=== PATIENT | female | born 1980 | race Caucasian/White ===

== ENCOUNTER 2023-02-15 09:13 | Outpatient (CLI) | payer BC, SELFPAY ==
[2023-02-19 05:18] LABS: Immunoglobulin A 240 mg/dL (47-310); TTG IGA AB <1.0 U/mL (<15.0)
== END 2023-02-15 09:14 | disposition home or self-care (01) ==
LOC: ANHLAB 09:15
PROVIDERS: Visit Provider Nurse Practitioner
DX: K92.1 Melena (principal); K58.2 Mixed irritable bowel syndrome
CPT/HCPCS: 36415; 82784; 86364

== ENCOUNTER 2023-04-20 01:49 | Day surgery (SDC) | payer BC, SELFPAY ==
[2023-04-06 15:51] VITALS: BMI 28.3
--- NOTE | 2023-04-16 11:48 | SUR.PREOP ---
Patient called regarding upcoming procedure. Message left on patient's voicemail regarding preop instructions, appointment times, and procedure prep.
[2023-04-20 08:12] VITALS: BP 117/80; PULSE 64; RESP 16; TEMP 36.1; O2SAT 100; BMI 29.4
[2023-04-20] MEDS: LACTATED RINGERS 1,000 ML 150 ML IV CONT (08:22)
--- NOTE | 2023-04-20 08:51 | PM.HPGS ---
History of Present Illness History of Present Illness Consent: Risks, benefits, and alternatives have been discussed and questions answered. Patient agrees to proceed with procedure. Chief complaint: Mixed irritable bowel syndrome,melena Narrative: Jaylyn Byrd is a 42 year old female with ibs-c, never had colonoscopy Review of Systems Constitutional: Constitutional: Denies headache(s) and Denies weakness Eyes: Eyes: Denies blurry vision ENT: Reports Normal hearing present, Denies headache(s) and Denies neck pain Cardiovascular: Cardiovascular: Denies chest pain and Denies dyspnea Respiratory: Respiratory: Denies dyspnea Gastrointestinal: Gastrointestinal: Reports no additional gastrointestinal complaints Genitourinary: Genitourinary: Denies dysuria Musculoskeletal: Musculoskeletal: Denies neck pain Integumentary/Breasts: Skin/Breast: Denies dry skin Neurologic: Reports Normal hearing present, Denies headache(s) and Denies weakness Psychiatric: Psychiatric: Denies anxiety Endocrine: Endocrine: Denies change in body appearance Hematologic/Lymphatic: Hematologic/Lymphatic: Denies easy bleeding Allergic/Immunologic: Allergic/Immunologic: Denies urticaria PMFSH Past Medical History Medical History (Updated 02/15/23 @ 09:10 by Mariah Eden APRN) Hematochezia Hemorrhoids Irritable bowel syndrome with alternating bowel habits Surgical History Surgical History (Updated 02/15/23 @ 09:19 by Mariah Eden APRN) Hx of right knee surgery 5 different right knee surgeries Social History Social History Smoking packs per day: 0.5 Smoking cigarettes per day: 10.0 Years smoked: 2 Smoking pack-years: 1.00 Smoking status: Former smoker Tobacco type: cigarettes Alcohol intake: never Substance use: never Substance use type: does not use Living arrangements: with family Spiritual care concerns: No Meds Home Medications and Allergies Home Medications Medication Instructions Recorded Confirmed Type cholecalciferol (vitamin D3) 325 325 mcg PO WEEKLY 02/15/23 04/20/23 History mcg (13,000 unit) capsule cetirizine 10 mg capsule (Zyrtec) 10 mg PO DAILY 04/06/23 04/20/23 History fluticasone propionate 50 1 spray intranasal BID 04/06/23 04/20/23 History mcg/actuation nasal spray,suspension polyethylene glycol 3350 17 17 g PO DAILY 04/06/23 04/20/23 History gram/dose oral powder (Miralax) Allergies Allergy/AdvReac Type Severity Reaction Status Date / Time vancomycin Allergy Severe Hives Verified 04/20/23 08:11 Sulfa (Sulfonamide Allergy Intermediate Hives Verified 04/20/23 08:11 Antibiotics) ciprofloxacin [From Cipro] Allergy Hives Verified 04/20/23 08:11 metronidazole [From Flagyl] Allergy Hives Verified 04/20/23 08:11 Vital Signs Vital Signs - 24 hr 04/20/23 08:12 Temperature 97 F L Pulse Rate 64 Respiratory Rate 16 Blood Pressure 117/80 Pulse Oximetry 100 Oxygen Delivery Room Air Exam Const: General: comfortable and no acute distress HENMT: Face/Nose/Sinus: Normal nares present Eyes: General: appearance normal, both eyes and all related structures Neck: Neck: no JVD Resp: Auscultation: clear to auscultation bilaterally Cardio: Rate: regular rate Rhythm: regular rhythm GI: Inspection: non-distended GI Palp: Yes Soft to palpation Skin: General skin exam: normal color Neuro: General: gait normal Speech: normal speech Extrem: General: normal to inspection Psych: Mental Status: mental status grossly normal Assessment and Plan Assessment and plan (1) Irritable bowel syndrome with alternating bowel habits: Code(s): K58.2 - Mixed irritable bowel syndrome Status: Acute Assessment and Plan: colonoscopy
--- NOTE | 2023-04-20 09:04 | WPDANESEPPF ---
Anes - Initial Pre Proc Eval Procedure: Operation Date: 04/20/23 09:30 Proposed Procedures p Colonoscopy - Blane Castle MD Date/Time: 04/20/23 09:04 Surgeon: Blane Castle MD Pre Op Diagnosis: Mixed irritable bowel syndrome,melena Patient Data Age: 42 Gender: F Height: 1.7 m Weight: 85.2 kg Last Vital Signs Temp 97 F L 04/20/23 08:12 Pulse 64 04/20/23 08:12 Resp 16 04/20/23 08:12 BP 117/80 04/20/23 08:12 Pulse Ox 100 04/20/23 08:12 O2 Del Method Room Air 04/20/23 08:12 Allergies Allergy/AdvReac Type Severity Reaction Status Date / Time vancomycin Allergy Severe Hives Verified 04/20/23 08:11 Sulfa (Sulfonamide Allergy Intermediate Hives Verified 04/20/23 08:11 Antibiotics) ciprofloxacin [From Cipro] Allergy Hives Verified 04/20/23 08:11 metronidazole [From Flagyl] Allergy Hives Verified 04/20/23 08:11 Home Medications Medication Instructions Recorded Confirmed Type cholecalciferol (vitamin D3) 325 325 mcg PO WEEKLY 02/15/23 04/20/23 History mcg (13,000 unit) capsule cetirizine 10 mg capsule (Zyrtec) 10 mg PO DAILY 04/06/23 04/20/23 History fluticasone propionate 50 1 spray intranasal BID 04/06/23 04/20/23 History mcg/actuation nasal spray,suspension polyethylene glycol 3350 17 17 g PO DAILY 04/06/23 04/20/23 History gram/dose oral powder (Miralax) Patient hx anesthesia problems: none Family hx anesthesia problems: none Results Review: All pre-operative results and documents have been reviewed as part of the pre-operative evaluation. [facility] Past Medical History Medical History (Updated 02/15/23 @ 09:10 by Mariah Eden APRN) Hematochezia Hemorrhoids Irritable bowel syndrome with alternating bowel habits Surgical History Surgical History (Updated 02/15/23 @ 09:19 by Mariah Eden APRN) Hx of right knee surgery 5 different right knee surgeries Social History Social History Smoking packs per day: 0.5 Smoking cigarettes per day: 10.0 Years smoked: 2 Smoking pack-years: 1.00 Smoking status: Former smoker Tobacco type: cigarettes Alcohol intake: never Substance use: never Substance use type: does not use Living arrangements: with family Spiritual care concerns: No Anes - Eval Final PreProcedure Day of Procedure 04/20/23 09:04 Patient weight: normal Heart: regular rate and rhythm Lungs: clear to auscultation Airway: Mallampati scale class II Neurological: alert and oriented Last oral intake: >/= 8 hours ASA classification: II Emergent: no Anesthetic plan: proceed Anesthesia type and monitoring: general GIVS and standard monitoring Results Review: All pre-operative results and documents have been reviewed as part of the pre-operative evaluation. Informed Consent: The patient's anesthetic plan and its attendant risks and benefits were discussed with the patient/family/POA. Questions were solicited and answers provided to the satisfaction of the patient/family/POA.
[2023-04-20 09:07] VITALS: BP 96/60; PULSE 80; RESP 22; O2SAT 99
[2023-04-20 09:17] VITALS: BP 104/63; PULSE 80; RESP 20; O2SAT 99
[2023-04-20 09:27] VITALS: BP 111/72; PULSE 78; RESP 20; O2SAT 98
== END 2023-04-20 09:41 | disposition home or self-care (01) ==
PROVIDERS: Visit Provider Internal Medicine Gastroenterology
PROC: 0DJD8ZZ Inspection of Lower Intestinal Tract, Via Natural or Artificial Opening Endoscopic (ICD-10-PCS; CPT 45378; principal; 2023-04-20 09:30)
DX: K58.2 Mixed irritable bowel syndrome (principal); K64.8 Other hemorrhoids; Z87.891 Personal history of nicotine dependence
CPT/HCPCS: 45378; J2704; J7120